=== PATIENT | male | born 1950 | race Caucasian/White ===

== ENCOUNTER 2022-03-04 10:01 | Emergency (ER) | payer MEDICARE, OTHER, MEDICAID ==
[2022-03-04] MEDS ORDERED: Sodium Chloride 0.9% 10 ML Syringe FLUSH PRN (10:41)
[2022-03-04] MEDS: Pantoprazole 40 MG Vial IVPUSH ONE (10:45)
[2022-03-04] MEDS: Sodium Chloride 0.9% 1,000 ML IV ONE (10:45)
[2022-03-04 11:25] LABS: ANION GAP 7.3 mmol/L (5-15)
== END 2022-03-04 13:20 ==
LOC: KA.ED 10:01
DX: K62.5 Hemorrhage of anus and rectum (principal); Z88.8 Allergy status to other drugs, medicaments and biological substances; Z79.899 Other long term (current) drug therapy; Z79.01 Long term (current) use of anticoagulants
CPT/HCPCS: 36415; 80053; 82272; 85025; 85610; 85730; 96361; 96374; 99283-25; 99284; C9113; J7030